=== PATIENT | female | born 1985 | race Caucasian/White ===

== ENCOUNTER 2017-02-20 23:13 | Inpatient (IN) | payer MEDICAID, OTHER ==
[~2017-02-20] VITALS: Ht 160 cm; Wt 86.6 kg
[~2017-02-20 23:13] MED LIST: ACET325T21 PO; CIPR500T3 PO; CIPR500T87 PO; ERTA1VIA IV; ETON1VAG VG; LEVO500T33 PO; METR500T PO; OXYC1TAB8 PO; OXYC5CAP4 PO; OXYC5TAB3 PO; PENI500T PO; PHEN37.53 PO; POLY17PO5 PO; PSYL0.5215 PO; [UNRECOGNIZED DRUG - CODE] PO; [UNRECOGNIZED DRUG - REMARK] PO
[2017-02-20] MEDS ORDERED: PROMETHAZINE 25 MG/ML, 1ML ONE (23:47)
[2017-02-20] MEDS ORDERED: MORPHINE SULFATE 4 MG/ML, 1ML ONE (23:47)
[2017-02-20] MEDS: MORPHINE SULFATE 4 MG/ML, 1ML IVPush PRN (23:55)
[2017-02-21] MEDS ORDERED: PROMETHAZINE 25 MG/ML, 1ML IM ONE
[2017-02-21 00:06] LABS: ASPARTATE AMINO TRANSFERASE 24 U/L (15-37); BLOOD UREA NITROGEN 25 mg/dL (7-18)
[2017-02-21] MEDS ORDERED: MORPHINE SULFATE 4 MG/ML, 1ML ONE (00:19)
[2017-02-21] MEDS: MORPHINE SULFATE 4 MG/ML, 1ML IVPush PRN (00:24)
[2017-02-21 00:44] LABS: DIFF TOTAL CELLS COUNTED 100 CELL DIFF
[2017-02-21 00:47] LABS: VERIFY COUNTS? YES
[2017-02-21 00:49] LABS: LARGE PLATELETS 1+
[2017-02-21] MEDS ORDERED: SODIUM CHLORIDE 0.9% 1,000ML IVBOLUS ONE ×2 (01:30)
[2017-02-21] MEDS ORDERED: LEVOFLOXACIN/PMX 750MG/150ML 150 ML ONE (01:47)
[2017-02-21] MEDS ORDERED: LEVOFLOXACIN/PMX 750MG/150ML 150 ML IV ONE (02:00)
[2017-02-21] MEDS ORDERED: SODIUM CHLORIDE 0.9% 1,000 ML IV ONE (02:32)
[2017-02-21] MEDS ORDERED: MORPHINE SULFATE 4 MG/ML, 1ML IVPush PRN (03:00)
[2017-02-21 03:11] VITALS: BP 117/68
[2017-02-21] MEDS ORDERED: PHARMACY MAY ADJ FOR RENAL FX MC PRN (04:00)
[2017-02-21] MEDS ORDERED: PROMETHAZINE 25 MG/ML, 1ML IM PRN (04:00)
[2017-02-21] MEDS: SODIUM CHLORIDE 0.9% 1,000 ML IV SCH ×3 (04:17→22:41)
[2017-02-21] MEDS: ENOXAPARIN 40 MG/0.4 ML SQ SCH (04:21)
[2017-02-21 07:25] VITALS: BP 107/61
[2017-02-21] MEDS: MEROPENEM 500 MG in SODIUM CHLORIDE 0.9% 100 ML IV SCH ×2 (10:54→18:31)
[2017-02-21 14:59] VITALS: BP 112/65
[2017-02-21] MEDS: morphine SULFATE 10 MG/ML, 1ML IVPush PRN ×2 (18:31→22:40)
[2017-02-21 19:18] VITALS: BP 111/67
[2017-02-21] MEDS ORDERED: ASCO500T21 PO (20:29)
[2017-02-22] MEDS: MEROPENEM 500 MG in SODIUM CHLORIDE 0.9% 100 ML IV SCH ×3 (01:01→18:15)
[2017-02-22 01:02] VITALS: BP 107/57
[2017-02-22 04:58] LABS: BLOOD UREA NITROGEN 13 mg/dL (7-18)
[2017-02-22 09:06] VITALS: BP 124/78
[2017-02-22] MEDS: ENOXAPARIN 40 MG/0.4 ML SQ SCH (09:51)
[2017-02-22] MEDS ORDERED: ACETAMINOPHEN 325 MG TABLET PO PRN (12:00)
[2017-02-22] MEDS: SODIUM CHLORIDE 0.45% 1,000 ML IV SCH ×2 (12:39→23:26)
[2017-02-22 14:00] VITALS: BP 136/57
[2017-02-22 20:36] VITALS: BP 135/78
[2017-02-23] MEDS ORDERED: LEVOFLOXACIN/PMX 500MG/100ML 100 ML IV SCH (02:00)
[2017-02-23] MEDS: MEROPENEM 500 MG in SODIUM CHLORIDE 0.9% 100 ML IV SCH ×3 (02:00→18:00)
[2017-02-23 05:31] LABS: BLOOD UREA NITROGEN 12 mg/dL (7-18)
[2017-02-23 07:36] VITALS: BP 135/88
[2017-02-23] MEDS: ENOXAPARIN 40 MG/0.4 ML SQ SCH (09:00)
[2017-02-23 12:49] VITALS: BP 131/90
[2017-02-23 20:21] VITALS: BP 122/83
[2017-02-24 00:42] VITALS: BP 136/76
[2017-02-24] MEDS: MEROPENEM 500 MG in SODIUM CHLORIDE 0.9% 100 ML IV SCH ×2 (01:53→09:49)
[2017-02-24 06:55] LABS: BLOOD UREA NITROGEN 12 mg/dL (7-18)
[2017-02-24 07:46] VITALS: BP 130/81
[2017-02-24] MEDS: ENOXAPARIN 40 MG/0.4 ML SQ SCH (09:00)
[2017-02-24] MEDS ORDERED: LEVO500T33 PO (09:40)
== END 2017-02-24 11:05 | disposition home or self-care (01) | DRG 690 ==
LOC: ED 02-21 00:48 → EDIP 02-21 02:32 → 3NW 02-21 02:59 → 3NE 02-22 15:12
PROVIDERS: ADMIT Internal Medicine; ATTEND Internal Medicine
PROC: 0T9B70Z Drainage of Bladder with Drainage Device, Via Natural or Artificial Opening (ICD-10-PCS; principal; 2017-02-20)
DX: N12 Tubulo-interstitial nephritis, not specified as acute or chronic (principal); N13.30 Unspecified hydronephrosis; K59.00 Constipation, unspecified; N17.9 Acute kidney failure, unspecified; Z87.440 Personal history of urinary (tract) infections; Z83.3 Family history of diabetes mellitus; Z87.442 Personal history of urinary calculi; N13.70 Vesicoureteral-reflux, unspecified; Z87.19 Personal history of other diseases of the digestive system; Z90.81 Acquired absence of spleen; Z84.1 Family history of disorders of kidney and ureter; Z88.5 Allergy status to narcotic agent; Z88.8 Allergy status to other drugs, medicaments and biological substances; Z91.040 Latex allergy status; Q05.9 Spina bifida, unspecified
CPT/HCPCS: 36415; 74176; 80048; 80053; 81001; 83605; 83690; 84145; 84703; 85025; 87040; 87077; 87086; 87186; 96372; 96374; 96375; J1650; J1956; J2185; J2550; J2270; J7030